=== PATIENT | male | born 1975 | race Caucasian/White ===

== ENCOUNTER 2023-03-15 23:11 | Emergency (ER) | payer SELFPAY ==
[~2023-03-15] VITALS: Ht 170.2 cm; Wt 81.6 kg
[2023-03-15 23:14] VITALS: BP 160/90
--- NOTE | 2023-03-15 23:19 | NUR ---
PT BROUGHT TO BED 4 VIA [facility]
--- NOTE | 2023-03-15 23:47 | NUR ---
[place] [employer] at bedside.
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
[2023-03-16] MEDS ORDERED: BACITRACIN OINT 500 UNITS/GM PKT TP ONE (00:20)
[2023-03-16] MEDS ORDERED: ACETAMINOPHEN EXTRA STRENGTH 500 MG TAB PO ONE (00:20)
[2023-03-16] MEDS ORDERED: BACI-416 TP (01:39)
[2023-03-16] MEDS ORDERED: ACET-10509 PO (01:39)
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
== END 2023-03-16 02:12 | disposition home or self-care (01) ==
LOC: MED 23:11
DX: S39.012A Strain of muscle, fascia and tendon of lower back, initial encounter (principal); S90.512A Abrasion, left ankle, initial encounter; S00.01XA Abrasion of scalp, initial encounter; S09.90XA Unspecified injury of head, initial encounter; Z79.899 Other long term (current) drug therapy; Y04.2XXA Assault by strike against or bumped into by another person, initial encounter; Y93.89 Activity, other specified; Y92.89 Other specified places as the place of occurrence of the external cause; Y99.8 Other external cause status
CPT/HCPCS: 70450; 72131; 99284